=== PATIENT | male | born 1975 | race Caucasian/White ===

== ENCOUNTER 2019-04-16 20:36 | Emergency (ER) | payer MEDICAID, MEDICARE ==
[~2019-04-16] VITALS: Ht 193 cm; Wt 92.5 kg
[~2019-04-16 20:36] MED LIST: LORA-259 PO; QUET25TA PO; TRAZ-182 PO
--- NOTE | 2019-04-16 21:54 | NUR ---
PT STATES "THEY SENT ME HERE FROM [facility] TO GET EVALUATED", +SI, PLAN TO WALK IN FRONT OF A BUS, -HI, +AUDITORY HALLUCINATIONS. PT AOX4. NAD NOTED. RESP EVEN AND UNLABORED. PT COOPERATIVE. PT BELONGINGS PLACED IN LABELED BAG AND PLACED IN LOCKER. SECURITY CALLED TO WAND PATIENT FOR SAFETY.
--- NOTE | 2019-04-16 21:58 | NUR ---
SECURITY AT BEDSIDE TO WAND PATIENT
--- NOTE | 2019-04-16 22:10 | NUR ---
PHLEB AT BEDSIDE FOR BLOOD DRAW
[2019-04-16 22:20] LABS: BASOPHILS # (AUTO) 0.1 /CMM (0.0-0.2); BASOPHILS % (AUTO) 0.6 % (0.0-2.0); EOSINOPHILS % (AUTO) 1.8 % (0.0-6.0); HEMATOCRIT 47 % (39-51); HEMOGLOBIN 15.5 g/dL (13.5-17.5); LYMPHOCYTES # (AUTO) 2.1 /CMM (0.8-4.8); LYMPHOCYTES % (AUTO) 21.6 % (20.0-44.0); MEAN CORPUSCULAR HGB CONC 33 g/dl (31.0-36.0); MEAN CORPUSCULAR VOLUME 93 fL (80-96); MONOCYTES # (AUTO) 0.8 /CMM (0.1-1.30); MONOCYTES % (AUTO) 8.2 % (2.0-12.0); NEUTROPHILS # (AUTO) 6.6 /CMM (1.8-8.9); NEUTROPHILS % (AUTO) 67.8 % (43.0-81.0); PLATELET COUNT (AUTO) 299 /CMM (150-450); RED BLOOD CELL COUNT(AUTO) 5.02 MIL/uL (4.5-6.0); WHITE BLOOD COUNT (AUTO) 9.8 K/uL (4.3-11.0)
[2019-04-16 22:22] LABS: APPEARANCE,URINE Clear (CLEAR); BILIRUBIN,URINE MODERATE (NEGATIVE); BLOOD, URINE Small Ery/uL (NEGATIVE); COLOR,URINE Amber (YELLOW); KETONES,URINE 80 (NEGATIVE); LEUKOCYTE ESTERASE ,URINE Negative (NEGATIVE); NITRITE, URINE Negative (NEGATIVE); PROTEIN,URINE Trace mg/dl (NEGATIVE); UGLUCOSE Negative (NEGATIVE)
[2019-04-16 22:35] LABS: CALCIUM, SERUM 9.1 mg/dL (8.5-10.1); CARBON DIOXIDE 25 mmol/L (21-32); CHLORIDE 100 mmol/L (98-107); CREATININE 0.9 mg/dL (0.6-1.3); GLUCOSE 92 mg/dL (74-106); POTASSIUM 3.5 mmol/L (3.5-5.1); SODIUM SERUM 136 mmol/L (136-145); UREA NITROGEN, BLOOD 21 mg/dL (7-18)
[2019-04-16 22:51] LABS: ALANINE AMINOTRANSFERASE 32 U/L (12-78); ALBUMIN 4.1 g/dL (3.4-5.0); ALCOHOL, BLOOD < 3 mg/dL (0-0); ALKALINE PHOSPHATASE 76 U/L (46-116); ASPARTATE AMINOTRANSFERASE 36 U/L (15-37); BILIRUBIN,DIRECT 0.5 mg/dL (0.0-0.2); BILIRUBIN,TOTAL 1.7 mg/dL (0.2-1.0); TOTAL PROTEIN, SERUM 8.1 g/dL (6.4-8.2)
[2019-04-16 22:52] LABS: ACETAMINOPHEN 0 ug/ml (10-30); SALICYLATE 0.8 mg/dL (2.8-20.0)
[2019-04-16 23:00] LABS: BACTERIA,URINE Few /HPF (None Seen); MUCUS,URINE Moderate /LPF (None Seen); RBC,URINE 21-50 /HPF (0-2); SQUAMOUS EPITHELIAL CELL,UR Rare /HPF (None Seen)
--- NOTE | 2019-04-17 03:20 | NUR ---
Pt accepted to [facility] by Dr Scruggs. # for report [phone].
--- NOTE | 2019-04-17 03:41 | NUR ---
José called for transport. ETA 2480. trip# [id number]
[2019-04-17 03:58] VITALS: BP 119/72
--- NOTE | 2019-04-17 04:19 | NUR ---
report given to EMT from [facility]
--- NOTE | 2019-04-17 04:35 | NUR ---
pt was transferred to [facility] via [facility] by [facility] in stable condition. all belongings pickedup by the pt/forklift wheel loader
== END 2019-04-17 04:39 ==
LOC: ER 20:38
DX: R45.851 Suicidal ideations (principal); Z98.890 Other specified postprocedural states; Z88.8 Allergy status to other drugs, medicaments and biological substances; Z79.899 Other long term (current) drug therapy
CPT/HCPCS: 36415; 80048; 80076; 80305; 80307; 80329; 81001; 85025; 87086; 99285; G0480; 81000-TC

== ENCOUNTER 2019-06-23 23:04 | Emergency (ER) | payer MEDICAID ==
[~2019-06-23] VITALS: Ht 177.8 cm; Wt 79.4 kg
--- NOTE | 2019-06-23 23:39 | NUR ---
URINE COLLECTED AND SENT TO LAB
[2019-06-23 23:54] LABS: APPEARANCE,URINE Clear (CLEAR); BILIRUBIN,URINE MODERATE (NEGATIVE); BLOOD, URINE Negative Ery/uL (NEGATIVE); COLOR,URINE Amber (YELLOW); KETONES,URINE Negative (NEGATIVE); LEUKOCYTE ESTERASE ,URINE Negative (NEGATIVE); NITRITE, URINE Negative (NEGATIVE); PROTEIN,URINE Trace mg/dl (NEGATIVE); UGLUCOSE Negative (NEGATIVE)
[2019-06-24 00:03] LABS: BASOPHILS # (AUTO) 0.1 /CMM (0.0-0.2); BASOPHILS % (AUTO) 1.4 % (0.0-2.0); EOSINOPHILS % (AUTO) 1.9 % (0.0-6.0); HEMATOCRIT 42 % (39-51); LYMPHOCYTES # (AUTO) 2.3 /CMM (0.8-4.8); LYMPHOCYTES % (AUTO) 32.2 % (20.0-44.0); MEAN CORPUSCULAR HGB CONC 33 g/dl (31.0-36.0); MEAN CORPUSCULAR VOLUME 92 fL (80-96); MONOCYTES # (AUTO) 0.6 /CMM (0.1-1.30); MONOCYTES % (AUTO) 8.9 % (2.0-12.0); NEUTROPHILS % (AUTO) 55.6 % (43.0-81.0); PLATELET COUNT (AUTO) 327 /CMM (150-450); WHITE BLOOD COUNT (AUTO) 7.2 K/uL (4.3-11.0)
[2019-06-24 00:09] LABS: CALCIUM, SERUM 9.1 mg/dL (8.5-10.1); CARBON DIOXIDE 31 mmol/L (21-32); CHLORIDE 106 mmol/L (98-107); GLUCOSE 126 mg/dL (74-106); SODIUM SERUM 144 mmol/L (136-145); UREA NITROGEN, BLOOD 15 mg/dL (7-18)
[2019-06-24 00:14] LABS: ACETAMINOPHEN 0 ug/ml (10-30); ALANINE AMINOTRANSFERASE 21 U/L (12-78); ALBUMIN 3.5 g/dL (3.4-5.0); ALCOHOL, BLOOD < 3 mg/dL (0-0); ALKALINE PHOSPHATASE 65 U/L (46-116); ASPARTATE AMINOTRANSFERASE 22 U/L (15-37); BILIRUBIN,DIRECT 0.2 mg/dL (0.0-0.2); BILIRUBIN,TOTAL 0.7 mg/dL (0.2-1.0); SALICYLATE 0.5 mg/dL (2.8-20.0); TOTAL PROTEIN, SERUM 7.7 g/dL (6.4-8.2)
[2019-06-24 00:30] LABS: BACTERIA,URINE None seen /HPF (None Seen); CALCIUM OXALATE CRYSTALS,UR Few /HPF (None Seen); MUCUS,URINE Many /LPF (None Seen); SQUAMOUS EPITHELIAL CELL,UR Few /HPF (None Seen)
--- NOTE | 2019-06-24 03:16 | NUR ---
ACCEPTED TO [facility] UNIT 2.
--- NOTE | 2019-06-24 03:29 | NUR ---
AMBULANCE RESERVATION #[id number]
--- NOTE | 2019-06-24 04:24 | NUR ---
AMBULANCE ETA 1000
--- NOTE | 2019-06-24 04:31 | NUR ---
AMBULANCE DISPATCH WILL CALL BACK WITH A EARLIER ETA IF AVAILABLE.
--- NOTE | 2019-06-24 04:58 | NUR ---
Patient is resting comfortably in bed with eyes closed. Easily aroused. VSS. -ACUTE DISTRESS NOTED
--- NOTE | 2019-06-24 05:53 | NUR ---
REPORT GIVEN TO BRIDGET PARMAR AT [facility]
[2019-06-24 10:14] VITALS: BP 132/80
--- NOTE | 2019-06-24 10:15 | NUR ---
TRANSFERED TO [facility]. STABLE CONDITION.
== END 2019-06-24 10:16 ==
LOC: ER 23:06
DX: F15.10 Other stimulant abuse, uncomplicated (principal); R45.851 Suicidal ideations; F31.9 Bipolar disorder, unspecified; F25.9 Schizoaffective disorder, unspecified; Z98.890 Other specified postprocedural states; Z79.899 Other long term (current) drug therapy; Z88.8 Allergy status to other drugs, medicaments and biological substances
CPT/HCPCS: 36415; 80048; 80076; 80305; 80307; 80329; 81001; 85025; 87086; 99285; G0480; 81000-TC

== ENCOUNTER 2019-11-01 12:24 | Emergency (ER) | payer MEDICAID ==
[~2019-11-01] VITALS: Ht 182.9 cm; Wt 72.6 kg
--- NOTE | 2019-11-01 12:25 | NUR ---
PT BIB SELF C/O SI "want to jump in front of traffic." PT IS AAOX4, NOT IN RESPIRATORY DISTRESS, V/S STABLE, KEPT RESTED AND COMFORTABLE, WILL CONTINUE TO MONITOR.
--- NOTE | 2019-11-01 12:35 | NUR ---
PT SEEN AND EXAMINED BY .
--- NOTE | 2019-11-01 12:49 | NUR ---
URINE SPECIMEN COLLECTED AND SENT TO LAB.
--- NOTE | 2019-11-01 13:05 | NUR ---
ER PHLEB AT BEDSIDE FOR BLOOD DRAW.
[2019-11-01 13:12] LABS: APPEARANCE,URINE Slightly Cloudy (CLEAR); BILIRUBIN,URINE MODERATE (NEGATIVE); BLOOD, URINE Negative Ery/uL (NEGATIVE); COLOR,URINE Dark (YELLOW); KETONES,URINE Trace (NEGATIVE); LEUKOCYTE ESTERASE ,URINE Negative (NEGATIVE); NITRITE, URINE Negative (NEGATIVE); PH,URINE 5.5 (5.0-8.0); PROTEIN,URINE Trace mg/dl (NEGATIVE); UGLUCOSE Negative (NEGATIVE)
[2019-11-01 13:15] LABS: BASOPHILS % (AUTO) 0.5 % (0.0-2.0); EOSINOPHILS % (AUTO) 1.1 % (0.0-6.0); HEMATOCRIT 41 % (39-51); HEMOGLOBIN 13.9 g/dL (13.5-17.5); LYMPHOCYTES % (AUTO) 27.4 % (20.0-44.0); MEAN CORPUSCULAR HGB CONC 34 g/dl (31.0-36.0); MEAN CORPUSCULAR VOLUME 94 fL (80-96); MONOCYTES # (AUTO) 0.7 /CMM (0.1-1.30); MONOCYTES % (AUTO) 9.9 % (2.0-12.0); NEUTROPHILS # (AUTO) 4.4 /CMM (1.8-8.9); NEUTROPHILS % (AUTO) 61.1 % (43.0-81.0); PLATELET COUNT (AUTO) 242 /CMM (150-450); RED BLOOD CELL COUNT(AUTO) 4.36 MIL/uL (4.5-6.0); WHITE BLOOD COUNT (AUTO) 7.3 K/uL (4.3-11.0)
[2019-11-01 13:22] LABS: BACTERIA,URINE Few /HPF (None Seen); SQUAMOUS EPITHELIAL CELL,UR Few /HPF (None Seen); URINE AMORPHOUS URATE Moderate /HPF (None Seen)
[2019-11-01 13:22] LABS: CALCIUM, SERUM 8.2 mg/dL (8.5-10.1); CARBON DIOXIDE 27 mmol/L (21-32); CHLORIDE 102 mmol/L (98-107); CREATININE 0.9 mg/dL (0.6-1.3); GLUCOSE 99 mg/dL (74-106); POTASSIUM 3.3 mmol/L (3.5-5.1); SODIUM SERUM 138 mmol/L (136-145); UREA NITROGEN, BLOOD 22 mg/dL (7-18)
[2019-11-01 13:28] LABS: ALANINE AMINOTRANSFERASE 32 U/L (12-78); ALBUMIN 3.9 g/dL (3.4-5.0); ALCOHOL, BLOOD < 3 mg/dL (0-0); ALKALINE PHOSPHATASE 66 U/L (46-116); ASPARTATE AMINOTRANSFERASE 33 U/L (15-37); BILIRUBIN,DIRECT 0.4 mg/dL (0.0-0.2); BILIRUBIN,TOTAL 1.6 mg/dL (0.2-1.0); TOTAL PROTEIN, SERUM 7.5 g/dL (6.4-8.2)
[2019-11-01 13:31] LABS: ACETAMINOPHEN < 2 ug/ml (10-30); SALICYLATE < 0.2 mg/dL (2.8-20.0)
--- NOTE | 2019-11-01 14:00 | NUR ---
WAREHOUSE INSULATION WORKER was informed by Randal in ED pt requires voluntary hospitalization. Per MD notes, pt is a 44-year-old male, patient is suicidal and states he wants to run into traffic. No homicidal ideation. No other somatic complaints. No cough, COVID-19 contacts, sore throat, fever or chills. WAREHOUSE INSULATION WORKER conducted chart review. Pt has a history of Bipolar and Schizophrenia. WAREHOUSE INSULATION WORKER contacted Rolly at [facility] and initiated voluntary psychiatric admission. Clinicals faxed to [facility] intake dept.
--- NOTE | 2019-11-01 14:56 | NUR ---
ART APPRAISER followed up with Junie at [facility] intake. Per Junie, clinicals are being reviewed by lost charge card clerk at [place]. Junie to f/u within the next hour.
--- NOTE | 2019-11-01 16:11 | NUR ---
AUTOTRANSFUSIONIST called [facility] intake and spoke with CJ who informed AUTOTRANSFUSIONIST pt has been referred to [facility] and is awaiting a follow up from [facility]. SW informed CJ to follow up with ED when pt is confirmed to go to [facility] location.
--- NOTE | 2019-11-01 17:31 | NUR ---
Called [facility] for transport. No ETA as of yet
--- NOTE | 2019-11-01 17:31 | NUR ---
pt accepted to [facility] Accepting MD is Dr. Phelan, Pt will got to unit B4. Number for report is [phone]
--- NOTE | 2019-11-01 19:50 | NUR ---
PT PROVIDED WITH FOOD
--- NOTE | 2019-11-01 20:31 | NUR ---
[facility] ETA 2100
[2019-11-01 21:00] VITALS: BP 110/70
--- NOTE | 2019-11-01 21:09 | NUR ---
REPORT GIVEN TO JESSICA PARMAR FOR [facility]
--- NOTE | 2019-11-01 21:15 | NUR ---
[facility] AT BEDSIDE FOR TRANSPORT TO [facility].
== END 2019-11-01 21:32 ==
LOC: ER 12:24
DX: R45.851 Suicidal ideations (principal); F31.9 Bipolar disorder, unspecified; Z98.890 Other specified postprocedural states; Z88.8 Allergy status to other drugs, medicaments and biological substances; Z79.899 Other long term (current) drug therapy
CPT/HCPCS: 36415; 80048; 80076; 80305; 80307; 80329; 81001; 85025; 99285; G0480; 81000-TC

== ENCOUNTER 2020-03-11 15:16 | Emergency (ER) | payer MEDICAID ==
[~2020-03-11] VITALS: Ht 177.8 cm; Wt 72.6 kg
--- NOTE | 2020-03-11 15:30 | NUR ---
PT CAME TO THE ER FOR SI W/ A PLAN TO OVERDOSE ON MEDICATIONS. PT AAOX4, VSS, RESPIRATIONS EVEN AND UNLABORED ON RA W/ NAD NOTED. PT CONNECTED TO THE REVENUE MANAGER AND POX. PT CHANGED INTO GOWN, BELONGINGS PLACED TO LOCKER. SUICIDE PRECAUTIONS IMPLEMENTED. SITTER AT BEDSIDE FOR SAFETY
--- NOTE | 2020-03-11 15:33 | NUR ---
Contact [facility] at ext. [phone] for patient assessment.
[2020-03-11 15:43] LABS: BASOPHILS # (AUTO) 0.1 /CMM (0.0-0.2); BASOPHILS % (AUTO) 0.9 % (0.0-2.0); EOSINOPHILS % (AUTO) 1.3 % (0.0-6.0); HEMATOCRIT 41 % (39-51); HEMOGLOBIN 13.7 g/dL (13.5-17.5); LYMPHOCYTES # (AUTO) 2.1 /CMM (0.8-4.8); LYMPHOCYTES % (AUTO) 31.3 % (20.0-44.0); MEAN CORPUSCULAR HGB CONC 33 g/dl (31.0-36.0); MEAN CORPUSCULAR VOLUME 97 fL (80-96); MONOCYTES # (AUTO) 0.7 /CMM (0.1-1.30); MONOCYTES % (AUTO) 10.8 % (2.0-12.0); NEUTROPHILS # (AUTO) 3.8 /CMM (1.8-8.9); NEUTROPHILS % (AUTO) 55.7 % (43.0-81.0); PLATELET COUNT (AUTO) 298 /CMM (150-450); RED BLOOD CELL COUNT(AUTO) 4.26 MIL/uL (4.5-6.0); WHITE BLOOD COUNT (AUTO) 6.9 K/uL (4.3-11.0)
--- NOTE | 2020-03-11 15:43 | NUR ---
COVID SWAB COLLECTED AND SENT TO LAB
--- NOTE | 2020-03-11 16:00 | NUR ---
URINE COLLECTED AND SENT TO LAB
[2020-03-11 16:04] LABS: CALCIUM, SERUM 8.4 mg/dL (8.5-10.1); CARBON DIOXIDE 23 mmol/L (21-32); CHLORIDE 103 mmol/L (98-107); CREATININE 0.8 mg/dL (0.6-1.3); GLUCOSE 89 mg/dL (74-106); POTASSIUM 3.3 mmol/L (3.5-5.1); SODIUM SERUM 140 mmol/L (136-145); UREA NITROGEN, BLOOD 19 mg/dL (7-18)
[2020-03-11 16:17] LABS: ACETAMINOPHEN 0 ug/ml (10-30); ALANINE AMINOTRANSFERASE 28 U/L (12-78); ALCOHOL, BLOOD < 3 mg/dL (0-0); ALKALINE PHOSPHATASE 67 U/L (46-116); ASPARTATE AMINOTRANSFERASE 33 U/L (15-37); BILIRUBIN,DIRECT 0.4 mg/dL (0.0-0.2); BILIRUBIN,TOTAL 2.1 mg/dL (0.2-1.0); TOTAL PROTEIN, SERUM 7.5 g/dL (6.4-8.2)
[2020-03-11 16:22] LABS: APPEARANCE,URINE Clear (CLEAR); BILIRUBIN,URINE Negative (NEGATIVE); BLOOD, URINE Negative Ery/uL (NEGATIVE); COLOR,URINE Yellow (YELLOW); KETONES,URINE Negative (NEGATIVE); LEUKOCYTE ESTERASE ,URINE Negative (NEGATIVE); NITRITE, URINE Negative (NEGATIVE); PH,URINE 6.5 (5.0-8.0); PROTEIN,URINE Negative (NEGATIVE); UGLUCOSE Negative (NEGATIVE); UROBILINOGEN,URINE 0.2 EU/dL (0.2)
--- NOTE | 2020-03-11 16:29 | NUR ---
SS ASESSMENT: [facility] notified by ER nursing staff that the pt. requires voluntary psych placement for SI with plan to : run into moving traffic. Upon SS assessment the pt. appears disheveled, presents restless and is cooperative throughout interview. The pt. is alert and oriented x3. The pt. stated that he is experiencing homelessness since the age of 6 and resides in [place]. Per patient he is currently having thoughts of suicide with a plan to run into traffic or drink some gasoline. Pt. is agreeable for voluntary psych placement at [facility][[address] [place] [address] ]. Pt. stated that he has a history of Bipolar and Schizophrenia. Patient stated that he hears voices that tell him theyw ill kill me and pt. stated he also has visual hallucinations. Per pt. he has taken the following medications is the past: Klonopin, Trazodone, Seroquel, Wellbutrin, and is not currently taking any medication as he has no access to it. [facility] called ER admitting department and they are working on presumptive Medi-Timo for the pt. [facility] communicated to ER Staff, Romain to fax labs to [facility] for placement when ready and arrange transportation.
--- NOTE | 2020-03-11 17:03 | NUR ---
Danielle, Intake Mounter [employer] Tel #: [phone] called asking for insurance update. According to Danielle, the patient has a reserved bed at [facility]. Addendum: 03/11/20 at 1706 by BREANN Ok to be admitted at [facility] if patient has insurance.
--- NOTE | 2020-03-11 19:00 | NUR ---
[facility] CALL[facility], WANT FACESHEET AND CLINICALS FAXED
--- NOTE | 2020-03-11 20:06 | NUR ---
TRANSFER INFORMATION: [facility] ACCEPTING MD : DR. FIERRO NUMBER FOR REPORT: [phone] EXT 108 UNIT 1
[2020-03-11 20:19] VITALS: BP 114/75
--- NOTE | 2020-03-11 20:26 | NUR ---
REPORT GIVEN TO GHULAM ALMAZAN FROM [facility] FOR [facility]
[2020-03-11] MEDS ORDERED: POTASSIUM CHLORIDE 20 MEQ TAB.PRT.SR PO ONE ×2 (20:44→21:00)
--- NOTE | 2020-03-11 21:15 | NUR ---
REPORT GIVEN TO EMS. PT STABLE FOR TRANSFER
== END 2020-03-11 21:21 ==
LOC: ER 15:37
DX: R45.851 Suicidal ideations (principal); F25.0 Schizoaffective disorder, bipolar type; Z20.828 Contact with and (suspected) exposure to other viral communicable diseases; Z91.14 Patient's other noncompliance with medication regimen
CPT/HCPCS: 36415; 80048; 80076; 80299; 80307 ×2; 80320; 81001; 85025; 87426; 99285; C9803; 81000-TC; G0480

== ENCOUNTER 2020-03-18 21:49 | Emergency (ER) | payer MEDICAID ==
[~2020-03-18] VITALS: Ht 185.4 cm; Wt 77.1 kg
--- NOTE | 2020-03-18 21:58 | NUR ---
PT AAOX4. BIBSELF C/O SI WITH PLAN TO WALK INTO TRAFFIC. DENIES HI. ADMITS TO METH USE. PT PLACED IN GOWN, ON MONITOR, AND PULSE OX. VSS. BELONINGS PLACED IN LOCKER. AWAITING MD FOR EVAL AND ORDERS. SITTER AT BEDSIDE.
--- NOTE | 2020-03-18 22:19 | NUR ---
URINE COLLECTED AND SENT TO LAB
--- NOTE | 2020-03-18 22:28 | NUR ---
COVID SWABBED, SENT TO LAB
[2020-03-18 22:37] LABS: BASOPHILS % (AUTO) 0.3 % (0.0-2.0); EOSINOPHILS % (AUTO) 1.3 % (0.0-6.0); HEMATOCRIT 44 % (39-51); HEMOGLOBIN 14.6 g/dL (13.5-17.5); LYMPHOCYTES # (AUTO) 1.5 /CMM (0.8-4.8); LYMPHOCYTES % (AUTO) 13.5 % (20.0-44.0); MEAN CORPUSCULAR HGB CONC 33 g/dl (31.0-36.0); MEAN CORPUSCULAR VOLUME 96 fL (80-96); MONOCYTES # (AUTO) 1.1 /CMM (0.1-1.30); MONOCYTES % (AUTO) 9.8 % (2.0-12.0); NEUTROPHILS # (AUTO) 8.1 /CMM (1.8-8.9); NEUTROPHILS % (AUTO) 75.1 % (43.0-81.0); PLATELET COUNT (AUTO) 276 /CMM (150-450); RED BLOOD CELL COUNT(AUTO) 4.62 MIL/uL (4.5-6.0); WHITE BLOOD COUNT (AUTO) 10.8 K/uL (4.3-11.0)
[2020-03-18 22:38] LABS: APPEARANCE,URINE CLEAR (CLEAR); BILIRUBIN,URINE NEGATIVE (NEGATIVE); BLOOD, URINE NEGATIVE Ery/uL (NEGATIVE); COLOR,URINE YELLOW (YELLOW); KETONES,URINE NEGATIVE (NEGATIVE); LEUKOCYTE ESTERASE ,URINE NEGATIVE (NEGATIVE); NITRITE, URINE NEGATIVE (NEGATIVE); PH,URINE 5.5 (5.0-8.0); PROTEIN,URINE TRACE mg/dl (NEGATIVE); UGLUCOSE NEGATIVE (NEGATIVE)
[2020-03-18 23:00] LABS: BACTERIA,URINE None seen /HPF (None Seen); RBC,URINE 0-2 /HPF (0-2); SQUAMOUS EPITHELIAL CELL,UR Few /HPF (None Seen); URINE AMORPHOUS URATE Few /HPF (None Seen); WBC,URINE 0-2 /HPF (0-3)
--- NOTE | 2020-03-18 23:00 | NUR ---
Patient is resting comfortably in bed. Easily aroused. VSS.
[2020-03-18 23:01] LABS: CARBON DIOXIDE 26 mmol/L (21-32); CHLORIDE 101 mmol/L (98-107); CREATININE 0.9 mg/dL (0.6-1.3); GLUCOSE 92 mg/dL (74-106); POTASSIUM 3.6 mmol/L (3.5-5.1); SODIUM SERUM 138 mmol/L (136-145); UREA NITROGEN, BLOOD 24 mg/dL (7-18)
[2020-03-18 23:01] LABS: MUCUS,URINE Many /LPF (None Seen)
[2020-03-18 23:09] LABS: ALANINE AMINOTRANSFERASE 34 U/L (12-78); ALBUMIN 4.3 g/dL (3.4-5.0); ALCOHOL, BLOOD < 3 mg/dL (0-0); ALKALINE PHOSPHATASE 60 U/L (46-116); ASPARTATE AMINOTRANSFERASE 27 U/L (15-37); BILIRUBIN,DIRECT 0.4 mg/dL (0.0-0.2); BILIRUBIN,TOTAL 1.7 mg/dL (0.2-1.0); TOTAL PROTEIN, SERUM 8.1 g/dL (6.4-8.2)
[2020-03-18 23:11] LABS: ACETAMINOPHEN < 2 ug/ml (10-30)
--- NOTE | 2020-03-19 00:12 | NUR ---
PT ASLEEP. VSS.
[2020-03-19] MEDS ORDERED: IBUPROFEN 600 MG TABLET ONE (01:17)
[2020-03-19] MEDS ORDERED: IBUPROFEN 600 MG TABLET PO ONE (01:30)
--- NOTE | 2020-03-19 01:47 | NUR ---
Patient is resting comfortably in bed with eyes closed. Easily aroused. VSS
--- NOTE | 2020-03-19 02:54 | NUR ---
PER CJ; REFAX CLINICALS
[2020-03-19 08:23] VITALS: BP 125/71
--- NOTE | 2020-03-19 08:52 | NUR ---
This SW followed up with Rolly at [facility]. Rolly to reach out to this SW to provide an update.
--- NOTE | 2020-03-19 09:37 | NUR ---
REPORT GIVEN TO NURSING CECI VELA. PENDING TRANSPORT AMBULANCE.
--- NOTE | 2020-03-19 11:47 | NUR ---
CALLED TRANSPORT [facility] ETA IS [phone] EDUARDA
--- NOTE | 2020-03-19 13:10 | NUR ---
PT TRANSPORTED TO [facility] VIA S AMBULANCE IN STABLE CONDITION.
== END 2020-03-19 13:10 ==
LOC: ER 21:49
DX: R45.851 Suicidal ideations (principal); F15.10 Other stimulant abuse, uncomplicated; F25.0 Schizoaffective disorder, bipolar type; Z79.899 Other long term (current) drug therapy; Z20.828 Contact with and (suspected) exposure to other viral communicable diseases
CPT/HCPCS: 36415; 80048; 80076; 80299; 80307 ×2; 80320; 81001; 85025; 87426; 99285; C9803; 81000-TC; G0480

== ENCOUNTER 2020-07-25 19:50 | Emergency (ER) | payer SELFPAY ==
[~2020-07-25] VITALS: Ht 185.4 cm; Wt 77.1 kg
[2020-07-25 19:50] VITALS: BP 125/84
--- NOTE | 2020-07-25 21:36 | NUR ---
PT REFUSING BLOOD DRAW AND WANTS TO LEAVE AND COME BACK TOMORROW. PT STATES "I FEEL BETTER RIGHT NOW, I JUST WANT TO LEAVE AND COME BACK TOMORROW IF I FEEL BAD." PT DENIES SI/HI. PT REFUSING TO WAIT SPEAK TO ER PA BEFORE LEAVING.
== END 2020-07-25 21:40 | disposition home or self-care (01) ==
LOC: ER 19:52
DX: R45.851 Suicidal ideations (principal); F31.9 Bipolar disorder, unspecified; F20.9 Schizophrenia, unspecified; Z98.890 Other specified postprocedural states; Z88.8 Allergy status to other drugs, medicaments and biological substances; Z79.899 Other long term (current) drug therapy; Z04.6 Encounter for general psychiatric examination, requested by authority

== ENCOUNTER 2021-03-18 06:07 | Emergency (ER) | payer MEDICAID, OTHER ==
[~2021-03-18] VITALS: Ht 182.9 cm; Wt 77.1 kg
--- NOTE | 2021-03-18 07:01 | NUR ---
PT AAOX4. BIBSELF C/O SI WITH PLAN TO WALK ACROSS TRAFFIC. -HI. REQUESTING TO BE SENT TO [facility]. PLACED IN BED 13 IN GOWN, ON MONITOR, AND PULSE OX. PT'S BELONGINGS PLACED IN LOCKER. SITTER AT BEDSIDE. AWAITING ER MD FOR EVAL AND ORDERS.
[2021-03-18 07:02] LABS: BASOPHILS % (AUTO) 0.7 % (0.0-2.0); EOSINOPHILS % (AUTO) 4.6 % (0.0-6.0); HEMATOCRIT 41 % (39-51); HEMOGLOBIN 14.2 g/dL (13.5-17.5); LYMPHOCYTES # (AUTO) 1.9 K/uL (0.8-4.8); LYMPHOCYTES % (AUTO) 35.8 % (20.0-44.0); MEAN CORPUSCULAR HGB CONC 34 g/dl (31.0-36.0); MEAN CORPUSCULAR VOLUME 94 fL (80-96); MONOCYTES # (AUTO) 0.5 K/uL (0.1-1.30); MONOCYTES % (AUTO) 8.8 % (2.0-12.0); NEUTROPHILS # (AUTO) 2.7 K/uL (1.8-8.9); NEUTROPHILS % (AUTO) 50.1 % (43.0-81.0); PLATELET COUNT (AUTO) 257 K/uL (150-450); RED BLOOD CELL COUNT(AUTO) 4.41 MIL/uL (4.5-6.0); WHITE BLOOD COUNT (AUTO) 5.4 K/uL (4.3-11.0)
[2021-03-18 07:16] LABS: ALANINE AMINOTRANSFERASE 28 U/L (12-78); ALBUMIN 3.7 g/dL (3.4-5.0); ALKALINE PHOSPHATASE 57 U/L (46-116); ASPARTATE AMINOTRANSFERASE 27 U/L (15-37); BILIRUBIN,DIRECT 0.2 mg/dL (0.0-0.2); BILIRUBIN,TOTAL 0.8 mg/dL (0.2-1.0); CALCIUM, SERUM 8.2 mg/dL (8.5-10.1); CARBON DIOXIDE 28 mmol/L (21-32); CHLORIDE 102 mmol/L (98-107); CREATININE 0.7 mg/dL (0.6-1.3); GLUCOSE 89 mg/dL (74-106); POTASSIUM 3.3 mmol/L (3.5-5.1); SODIUM SERUM 138 mmol/L (136-145); UREA NITROGEN, BLOOD 7 mg/dL (7-18)
[2021-03-18 07:19] LABS: ACETAMINOPHEN 0 ug/ml (10-30); ALCOHOL, BLOOD < 3 mg/dL (0-0)
[2021-03-18 07:29] LABS: BILIRUBIN,URINE SMALL (NEGATIVE); COLOR,URINE DARK YELLOW (YELLOW); LEUKOCYTE ESTERASE ,URINE NEGATIVE (NEGATIVE); NITRITE, URINE NEGATIVE (NEGATIVE); PROTEIN,URINE NEGATIVE (NEGATIVE); UGLUCOSE NEGATIVE (NEGATIVE); UROBILINOGEN,URINE 0.2 EU/dL (0.2)
--- NOTE | 2021-03-18 08:08 | NUR ---
THE PATIENT IS RECEIVED IN ER BED #13. RESPONSIVE TO VERBAL STIMULI. RESPIRATION REGULAR AND UNLABORED. SITTER AT THE BEDSIDE. WILL CONTINUE TO MONITOR THE PATIENT. SITTER AT THE BEDSIDE
--- NOTE | 2021-03-18 08:19 | NUR ---
FAXED FACE SHEET AND CLINICALS TO [facility].
--- NOTE | 2021-03-18 08:33 | NUR ---
CALLED [facility] AND VERIFIED THAT THEY HAVE RECIEVED THE CLINICALS.
[2021-03-18 09:24] LABS: BACTERIA,URINE Rare /HPF (None Seen); SQUAMOUS EPITHELIAL CELL,UR Few /HPF (None Seen); WBC,URINE NONE SEEN /HPF (0-3)
--- NOTE | 2021-03-18 09:36 | NUR ---
THE PATIENT IS HAVING BREAKFAST. TOLERATES DIET WELL
--- NOTE | 2021-03-18 09:39 | NUR ---
[facility] CALLED AND WAS NOTIFIED THAT PT HAS BEEN ACCEPTED TO THE FACILITY AFTER 1330.
--- NOTE | 2021-03-18 10:07 | NUR ---
CALLED [facility] FOR BLS TRANSPORT FOR PT. ETA [phone]
--- NOTE | 2021-03-18 12:13 | NUR ---
REPORT GIVEN TO NURSE ZUNIGA FROM [facility]
--- NOTE | 2021-03-18 12:20 | NUR ---
ACCEPTING DOCTOR- DR. MELVIN
--- NOTE | 2021-03-18 16:00 | NUR ---
THE PATIENT IS TRANSFERED TO [facility] IN STABLE CONDITION VIA ARRANGED TRANSPO.
[2021-03-18 17:10] VITALS: BP 126/84
== END 2021-03-18 17:10 ==
LOC: ER 06:09
DX: R45.851 Suicidal ideations (principal); F15.10 Other stimulant abuse, uncomplicated; F31.9 Bipolar disorder, unspecified; F25.9 Schizoaffective disorder, unspecified; Z20.822 Contact with and (suspected) exposure to COVID-19; Z82.49 Family history of ischemic heart disease and other diseases of the circulatory system
CPT/HCPCS: 36415; 80048; 80076; 80143; 80307; 80320; 81001; 85025; 87426; 99285; C9803; G0480

== ENCOUNTER 2021-09-07 19:38 | Emergency (ER) | payer SELFPAY ==
[~2021-09-07] VITALS: Ht 185.4 cm; Wt 95.3 kg
--- NOTE | 2021-09-07 20:17 | NUR ---
CALLED TO TRIAGE NO ANSWER, NOT IN WAITING ROOM.
--- NOTE | 2021-09-07 20:40 | NUR ---
PRESENTED TO THE ER FOR C/O SI, REQUESTING MEDICAL CLEARANCE FOR VOLUNTARY PSYCH ADMISSION. PATIENT AMBULATORY WITH STEADY GAITS TO THE BATHROOM. URINE SAMPLE OBTAINED AND PATIENT WAS PLACED IN SI PRECAUTION. COVID SAMPLE SENT TO THE LAB. VSS. WILL CONT TO MONITOR.
[2021-09-07 21:27] LABS: BILIRUBIN,URINE SMALL (NEGATIVE); COLOR,URINE YELLOW (YELLOW); LEUKOCYTE ESTERASE ,URINE NEGATIVE (NEGATIVE); NITRITE, URINE NEGATIVE (NEGATIVE); PH,URINE 6.5 (5.0-8.0); PROTEIN,URINE NEGATIVE (NEGATIVE); UGLUCOSE NEGATIVE (NEGATIVE)
[2021-09-07 21:29] LABS: BASOPHILS % (AUTO) 0.2 % (0.0-2.0); EOSINOPHILS % (AUTO) 0.5 % (0.0-6.0); HEMATOCRIT 42 % (39-51); HEMOGLOBIN 14.2 g/dL (13.5-17.5); LYMPHOCYTES # (AUTO) 2.3 K/uL (0.8-4.8); LYMPHOCYTES % (AUTO) 28.5 % (20.0-44.0); MEAN CORPUSCULAR HGB CONC 34 g/dl (31.0-36.0); MEAN CORPUSCULAR VOLUME 91 fL (80-96); MONOCYTES # (AUTO) 0.6 K/uL (0.1-1.30); MONOCYTES % (AUTO) 8.1 % (2.0-12.0); NEUTROPHILS % (AUTO) 62.7 % (43.0-81.0); PLATELET COUNT (AUTO) 303 K/uL (150-450); RED BLOOD CELL COUNT(AUTO) 4.65 MIL/uL (4.5-6.0); WHITE BLOOD COUNT (AUTO) 7.9 K/uL (4.3-11.0)
[2021-09-07 21:42] LABS: CALCIUM, SERUM 9.1 mg/dL (8.5-10.1); CARBON DIOXIDE 21 mmol/L (21-32); CHLORIDE 104 mmol/L (98-107); GLUCOSE 145 mg/dL (74-106); SODIUM SERUM 139 mmol/L (136-145); UREA NITROGEN, BLOOD 24 mg/dL (7-18)
[2021-09-07 21:49] LABS: ALANINE AMINOTRANSFERASE 28 U/L (12-78); ALBUMIN 4.4 g/dL (3.4-5.0); ALCOHOL, BLOOD < 3 mg/dL (0-0); ALKALINE PHOSPHATASE 75 U/L (46-116); ASPARTATE AMINOTRANSFERASE 22 U/L (15-37); BILIRUBIN,DIRECT 0.3 mg/dL (0.0-0.2); TOTAL PROTEIN, SERUM 8.3 g/dL (6.4-8.2)
[2021-09-07 21:51] LABS: ACETAMINOPHEN 0 ug/ml (10-30)
[2021-09-07 21:58] LABS: BACTERIA,URINE FEW /HPF (None Seen); CALCIUM CARBONATE CRYSTALS,UR None Seen /HPF (None Seen); CALCIUM OXALATE CRYSTALS,UR None Seen /HPF (None Seen); CALCIUM PHOSPHATE CRYSTALS,UR None Seen /HPF (None Seen); COARSE GRANULAR CASTS,URINE None Seen /LPF (None Seen); CYSTINE CRYSTALS,URINE None Seen /HPF (None Seen); FATTY CASTS,URINE None Seen /LPF (None Seen); FINE GRANULAR CASTS,URINE None Seen /LPF (None Seen); HYALINE CASTS, URINE None Seen /LPF (None Seen); MUCUS,URINE None Seen /LPF (None Seen); OTHER CRYSTALS,URINE None Seen /HPF (None Seen); RBC,URINE 0-2 /HPF (0-2); RED BLOOD CELL CASTS,URINE None Seen /LPF (None Seen); SPERM,URINE None Seen /HPF (None Seen); SQUAMOUS EPITHELIAL CELL,UR FEW /HPF (None Seen); TRICHOMONAS,URINE None Seen /HPF (None Seen); TRIPLE PHOSPHATE CRYSTAL,UR None Seen /HPF (None Seen); TYROSINE CRYSTAL,URINE None seen /HPF (None Seen); URIC ACID CRYSTALS,URINE None Seen /HPF (None Seen); URINE AMORPHOUS PHOSPHATES None Seen /HPF (None Seen); URINE AMORPHOUS URATE None Seen /HPF (None Seen); WAXY CASTS,URINE None Seen /LPF (None Seen); WBC,URINE 0-2 /HPF (0-3); YEAST,URINE None Seen /HPF (None Seen)
[2021-09-07] MEDS ORDERED: IV NS 0.9% 1,000 ML BAG IV ONE (22:00)
[2021-09-07] MEDS ORDERED: POTASSIUM CHLORIDE 20 MEQ TAB.PRT.SR PO ONE ×2 (22:00→22:07)
[2021-09-07] MEDS ORDERED: POTASSIUM CHLORIDE 10 MEQ TABLET.SA ONE (22:07)
--- NOTE | 2021-09-07 22:13 | NUR ---
PATIENT REFUSED IV, GIVEN 1L OF WATER MD NOTIFIED.
--- NOTE | 2021-09-08 00:48 | NUR ---
PATIENT STATES HE IS NO LONGER SUICIDAL. EDUCATED PATIENT, THAT HE CAN COME BACK ANYTIME IN CASE HE IS FEELING SUICIDAL. ADVISED PATIENT THAT THERE IS HELP OUT THERE FOR WHENEVER HE IS FEELING SUICIDAL. PROVIDED BELONGINGS BACK TO PATIENT GIVEN A SANDWICH AND WATER BOTTLE WELL A WARM BLANKET. NOTIFIED
[2021-09-08 00:50] VITALS: BP 128/78
== END 2021-09-08 00:49 | disposition home or self-care (01) ==
LOC: ER 19:38
DX: R45.851 Suicidal ideations (principal); Z82.49 Family history of ischemic heart disease and other diseases of the circulatory system; E87.6 Hypokalemia; F25.9 Schizoaffective disorder, unspecified; F31.9 Bipolar disorder, unspecified; Z79.899 Other long term (current) drug therapy; Z20.822 Contact with and (suspected) exposure to COVID-19; Z91.51 Personal history of suicidal behavior; Z53.29 Procedure and treatment not carried out because of patient's decision for other reasons
CPT/HCPCS: 36415; 80048; 80076; 80143; 80307; 80320; 81001; 85025; 87426; 99285; C9803; G0480

== ENCOUNTER 2021-09-13 21:37 | Emergency (ER) | payer MEDICAID ==
[~2021-09-13] VITALS: Ht 185.4 cm; Wt 90.7 kg
--- NOTE | 2021-09-14 00:23 | NUR ---
COVID SWAB COLLECTED & SENT TO LAB. PT REFUSED BLOOD DRAW AT THIS TIME
--- NOTE | 2021-09-14 04:57 | NUR ---
PATIENT ELOPED FROM HOSPITAL. AWARE.
[2021-09-14 04:58] VITALS: BP 140/70
== END 2021-09-14 04:59 | disposition left against medical advice (07) ==
LOC: ER 21:41
DX: R45.851 Suicidal ideations (principal); F31.9 Bipolar disorder, unspecified; F25.9 Schizoaffective disorder, unspecified; F17.200 Nicotine dependence, unspecified, uncomplicated; Z98.890 Other specified postprocedural states; Z88.8 Allergy status to other drugs, medicaments and biological substances; Z60.2 Problems related to living alone; Z79.899 Other long term (current) drug therapy

== ENCOUNTER 2021-09-16 06:49 | Emergency (ER) | payer SELFPAY ==
--- NOTE | 2021-09-16 07:20 | NUR ---
Called NO Response-NOT in WR
--- NOTE | 2021-09-16 07:25 | NUR ---
Called NO Response-NOT in WR
--- NOTE | 2021-09-16 07:30 | NUR ---
Called NO Response-NOT in WR
== END 2021-09-16 07:31 | disposition home or self-care (01) ==
LOC: ER 06:53
DX: Z53.21 Procedure and treatment not carried out due to patient leaving prior to being seen by health care provider (principal)

== ENCOUNTER 2021-09-17 19:39 | Emergency (ER) | payer SELFPAY ==
[~2021-09-17] VITALS: Ht 185.4 cm; Wt 95.3 kg
[2021-09-17 20:13] VITALS: BP 132/70
--- NOTE | 2021-09-17 20:15 | NUR ---
TO ER BED 18. BIBS C/O SI W/ PLAN "JUMP OFF FREEWAY" PT WOULD LIKE VOLUNTARY ADMISSION TO [facility]. BELONGINGS TAKEN AN SECURED. PT CHANGED INTO GOWN. SITTER IN SIGHT. MAGGIE OCONNELL
--- NOTE | 2021-09-17 20:20 | NUR ---
URINE SAMPLE COLLECTED AND SENT TO LAB
[2021-09-17] MEDS ORDERED: ACETAMINOPHEN ES 500 MG TABLET ONE (20:27)
[2021-09-17] MEDS ORDERED: IBUPROFEN 600 MG TABLET ONE (20:27)
[2021-09-17] MEDS ORDERED: IBUPROFEN 600 MG TABLET PO ONE (20:30)
[2021-09-17] MEDS ORDERED: ACETAMINOPHEN 325 MG TABLET PO ONE (20:30)
--- NOTE | 2021-09-17 20:50 | NUR ---
PT NOW DENIES SUICIDAL THOUGHTS, MD MADE AWARE. V/S STABLE. WILL CONTINUE TO MONITOR.
--- NOTE | 2021-09-17 21:05 | NUR ---
Patient discharged to home in stable condition. Written and verbal after care instructions given. Patient verbalizes understanding of instruction.
== END 2021-09-17 21:05 | disposition home or self-care (01) ==
LOC: ER 19:50
DX: G89.29 Other chronic pain (principal); M79.671 Pain in right foot; M79.672 Pain in left foot; B35.1 Tinea unguium; F29 Unspecified psychosis not due to a substance or known physiological condition; F17.200 Nicotine dependence, unspecified, uncomplicated; F31.9 Bipolar disorder, unspecified; F25.9 Schizoaffective disorder, unspecified; Z59.00 Homelessness unspecified; Z98.890 Other specified postprocedural states; Z88.8 Allergy status to other drugs, medicaments and biological substances; Z60.2 Problems related to living alone; Z79.899 Other long term (current) drug therapy

== ENCOUNTER 2021-09-18 10:08 | Emergency (ER) | payer MEDICAID ==
--- NOTE | 2021-09-18 10:16 | NUR ---
called for triage and decline triage at the moment.
--- NOTE | 2021-09-18 10:30 | NUR ---
called for triage not in the waiting room
--- NOTE | 2021-09-18 11:00 | NUR ---
called for triage not in the waiting room
== END 2021-09-18 12:09 | disposition left against medical advice (07) ==
LOC: ER 10:10
DX: Z53.21 Procedure and treatment not carried out due to patient leaving prior to being seen by health care provider (principal)

== ENCOUNTER 2021-09-18 16:57 | Emergency (ER) | payer MEDICAID ==
[~2021-09-18] VITALS: Ht 185.4 cm; Wt 95.3 kg
--- NOTE | 2021-09-18 17:07 | NUR ---
To ER bed 14, [facility] +ABBY "i want to jump off the bridge", -HI, aaox3, breathing even and non labored, awaiting md ruby
--- NOTE | 2021-09-18 17:15 | NUR ---
SECURITY SHIFT SUPERVISOR AT BEDSIDE FOR BLOOD DRAW
--- NOTE | 2021-09-18 17:18 | NUR ---
URINE COLLECTED AND SENT TO THE LAB
--- NOTE | 2021-09-18 17:22 | NUR ---
COVID SWAB DONE AND SENT TO LAB
[2021-09-18 17:32] LABS: BASOPHILS % (AUTO) 0.6 % (0.0-2.0); EOSINOPHILS % (AUTO) 3.4 % (0.0-6.0); HEMATOCRIT 37 % (39-51); HEMOGLOBIN 12.5 g/dL (13.5-17.5); LYMPHOCYTES # (AUTO) 2.3 K/uL (0.8-4.8); MEAN CORPUSCULAR HGB CONC 34 g/dl (31.0-36.0); MEAN CORPUSCULAR VOLUME 92 fL (80-96); MONOCYTES # (AUTO) 0.5 K/uL (0.1-1.30); MONOCYTES % (AUTO) 7.7 % (2.0-12.0); NEUTROPHILS # (AUTO) 3.3 K/uL (1.8-8.9); NEUTROPHILS % (AUTO) 51.3 % (43.0-81.0); PLATELET COUNT (AUTO) 247 K/uL (150-450); RED BLOOD CELL COUNT(AUTO) 4.04 MIL/uL (4.5-6.0); WHITE BLOOD COUNT (AUTO) 6.3 K/uL (4.3-11.0)
[2021-09-18 17:42] LABS: BILIRUBIN,URINE NEGATIVE (NEGATIVE); COLOR,URINE YELLOW (YELLOW); LEUKOCYTE ESTERASE ,URINE NEGATIVE (NEGATIVE); NITRITE, URINE NEGATIVE (NEGATIVE); PROTEIN,URINE NEGATIVE (NEGATIVE); UGLUCOSE NEGATIVE (NEGATIVE)
[2021-09-18 17:52] LABS: BACTERIA,URINE N0 /HPF (None Seen); MUCUS,URINE Few /LPF (None Seen); RBC,URINE 0-2 /HPF (0-2); WBC,URINE 0-2 /HPF (0-3)
[2021-09-18 17:52] LABS: CALCIUM, SERUM 7.9 mg/dL (8.5-10.1); CARBON DIOXIDE 28 mmol/L (21-32); CHLORIDE 102 mmol/L (98-107); CREATININE 0.8 mg/dL (0.6-1.3); GLUCOSE 104 mg/dL (74-106); POTASSIUM 3.5 mmol/L (3.5-5.1); SODIUM SERUM 133 mmol/L (136-145); UREA NITROGEN, BLOOD 9 mg/dL (7-18)
[2021-09-18 17:53] LABS: SQUAMOUS EPITHELIAL CELL,UR 0-2 /HPF (None Seen)
[2021-09-18 17:59] LABS: ALANINE AMINOTRANSFERASE 27 U/L (12-78); ALBUMIN 3.4 g/dL (3.4-5.0); ALKALINE PHOSPHATASE 56 U/L (46-116); ASPARTATE AMINOTRANSFERASE 22 U/L (15-37); BILIRUBIN,DIRECT 0.2 mg/dL (0.0-0.2); BILIRUBIN,TOTAL 0.6 mg/dL (0.2-1.0); TOTAL PROTEIN, SERUM 6.3 g/dL (6.4-8.2)
[2021-09-18 18:24] LABS: ACETAMINOPHEN 0 ug/ml (10-30); ALCOHOL, BLOOD < 3 mg/dL (0-0)
[2021-09-18] MEDS ORDERED: LORAZEPAM 1 MG TABLET PO ONE (18:30)
[2021-09-18] MEDS ORDERED: LORAZEPAM 1 MG TABLET ONE (18:38)
--- NOTE | 2021-09-18 18:53 | NUR ---
PER ERICH OF LAB COVID RESULT WILL BE OUT IN 6MINS
[2021-09-18] MEDS ORDERED: OLANZAPINE 5 MG TABLET PO ONE (19:00)
[2021-09-18] MEDS ORDERED: OLANZAPINE 5 MG TABLET ONE (19:04)
--- NOTE | 2021-09-18 19:10 | NUR ---
FAXED CLINICALS TO [facility].
--- NOTE | 2021-09-19 01:53 | NUR ---
PATIENT ACCEPT AT [facility] UNDER DR HARRY REPORT [phone]- CHARGE NURSE [facility] ROOM GIVEN DURING REPORT
--- NOTE | 2021-09-19 02:08 | NUR ---
PT WILL BE TRANSPORTED TO [facility]IA [facility] AT 0730.
--- NOTE | 2021-09-19 04:17 | NUR ---
REPORT GIVEN TO NURSE MARSHALL ROOM 3084-C
--- NOTE | 2021-09-19 04:21 | NUR ---
ROOM 308-C
--- NOTE | 2021-09-19 08:07 | NUR ---
[facility] CALLED NEW ETA 60 MINS PER SAL.
[2021-09-19 09:25] VITALS: BP 132/87
== END 2021-09-19 09:42 ==
LOC: ER 19:02
DX: R45.851 Suicidal ideations (principal); F25.9 Schizoaffective disorder, unspecified; F31.9 Bipolar disorder, unspecified; Z79.899 Other long term (current) drug therapy; Z59.00 Homelessness unspecified; Z20.822 Contact with and (suspected) exposure to COVID-19
CPT/HCPCS: 36415; 80048; 80076; 80143; 80307; 80320; 81001; 85025; 87426; 99285; C9803; G0480

== ENCOUNTER 2021-09-26 12:39 | Emergency (ER) | payer MEDICAID ==
[~2021-09-26] VITALS: Ht 185.4 cm; Wt 90.7 kg
--- NOTE | 2021-09-26 12:45 | NUR ---
DR MURRAY AT BEDSIDE
--- NOTE | 2021-09-26 12:50 | NUR ---
URINE SAMPLE COLLECTED AND SENT TO LAB
--- NOTE | 2021-09-26 12:58 | NUR ---
CLOTH DESIZING RANGE TENDER AT BEDSIDE FOR BLOOD DRAW
--- NOTE | 2021-09-26 12:58 | NUR ---
COVID SWAB DONE AND SENT
--- NOTE | 2021-09-26 13:09 | NUR ---
SECURITY AT BEDSIDE FOR WANDING.
[2021-09-26 13:15] LABS: BASOPHILS % (AUTO) 0.4 % (0.0-2.0); EOSINOPHILS % (AUTO) 0.4 % (0.0-6.0); HEMATOCRIT 43 % (39-51); HEMOGLOBIN 14.7 g/dL (13.5-17.5); LYMPHOCYTES # (AUTO) 1.9 K/uL (0.8-4.8); LYMPHOCYTES % (AUTO) 21.6 % (20.0-44.0); MEAN CORPUSCULAR HGB CONC 34 g/dl (31.0-36.0); MEAN CORPUSCULAR VOLUME 91 fL (80-96); MONOCYTES # (AUTO) 0.8 K/uL (0.1-1.30); MONOCYTES % (AUTO) 9.4 % (2.0-12.0); NEUTROPHILS % (AUTO) 68.2 % (43.0-81.0); PLATELET COUNT (AUTO) 293 K/uL (150-450); RED BLOOD CELL COUNT(AUTO) 4.73 MIL/uL (4.5-6.0); WHITE BLOOD COUNT (AUTO) 8.7 K/uL (4.3-11.0)
[2021-09-26 13:20] LABS: CALCIUM, SERUM 9.1 mg/dL (8.5-10.1); CARBON DIOXIDE 25 mmol/L (21-32); CHLORIDE 101 mmol/L (98-107); GLUCOSE 95 mg/dL (74-106); POTASSIUM 3.4 mmol/L (3.5-5.1); SODIUM SERUM 138 mmol/L (136-145); UREA NITROGEN, BLOOD 24 mg/dL (7-18)
[2021-09-26 13:23] LABS: BILIRUBIN,URINE SMALL (NEGATIVE); COLOR,URINE ORANGE (YELLOW); LEUKOCYTE ESTERASE ,URINE NEGATIVE (NEGATIVE); NITRITE, URINE NEGATIVE (NEGATIVE); PH,URINE 5.5 (5.0-8.0); PROTEIN,URINE NEGATIVE (NEGATIVE); UGLUCOSE NEGATIVE (NEGATIVE)
[2021-09-26 13:27] LABS: ALANINE AMINOTRANSFERASE 58 U/L (12-78); ALBUMIN 4.5 g/dL (3.4-5.0); ALCOHOL, BLOOD < 3 mg/dL (0-0); ALKALINE PHOSPHATASE 58 U/L (46-116); ASPARTATE AMINOTRANSFERASE 44 U/L (15-37); BILIRUBIN,DIRECT 0.3 mg/dL (0.0-0.2); BILIRUBIN,TOTAL 1.4 mg/dL (0.2-1.0); TOTAL PROTEIN, SERUM 8.3 g/dL (6.4-8.2)
[2021-09-26 13:31] LABS: ACETAMINOPHEN < 2 ug/ml (10-30)
[2021-09-26 13:39] LABS: BACTERIA,URINE Few /HPF (None Seen); RBC,URINE 0-2 /HPF (0-2); SQUAMOUS EPITHELIAL CELL,UR Many /HPF (None Seen); WBC,URINE 0-2 /HPF (0-3)
[2021-09-26] MEDS ORDERED: QUETIAPINE FUMARATE 100 MG TABLET PO STA (15:36)
[2021-09-26] MEDS ORDERED: QUETIAPINE FUMARATE 100 MG TABLET ONE (15:40)
--- NOTE | 2021-09-26 17:41 | NUR ---
DINNER TRAY PROVIDED.
--- NOTE | 2021-09-26 18:41 | NUR ---
PT STATED HE WANTS TO BE DISCHARGED AND HE FEELS BETTER NOW. PT DENIES SI/HI
--- NOTE | 2021-09-26 18:43 | NUR ---
Patient discharged to home in stable condition. Written and verbal after care instructions given. Patient verbalizes understanding of instruction.
[2021-09-26 18:44] VITALS: BP 128/84
== END 2021-09-26 18:52 | disposition home or self-care (01) ==
LOC: ER 12:53
DX: F23 Brief psychotic disorder (principal); F15.10 Other stimulant abuse, uncomplicated; Z59.00 Homelessness unspecified; F25.9 Schizoaffective disorder, unspecified; J45.909 Unspecified asthma, uncomplicated; F31.9 Bipolar disorder, unspecified; Z53.29 Procedure and treatment not carried out because of patient's decision for other reasons
CPT/HCPCS: 36415; 80048; 80076; 80143; 80307; 80320; 81001; 85025; 87426; 99285; C9803; G0480

== ENCOUNTER 2021-10-05 15:31 | Emergency (ER) | payer MEDICAID ==
[~2021-10-05] VITALS: Ht 185.4 cm; Wt 95.3 kg
--- NOTE | 2021-10-05 15:54 | NUR ---
BIBS FOR SI WITH PLAN TO JAMP INTO TRAFFIC. WANTS TO GO TO [facility] VOL ADMIN TO [facility]. DENIES HI. DENIES HAVING ANY HALLUCINATION. WILL CONTINUE TO MONITOR THE PATIENT.
[2021-10-05 16:10] LABS: BILIRUBIN,URINE NEGATIVE (NEGATIVE); COLOR,URINE YELLOW (YELLOW); LEUKOCYTE ESTERASE ,URINE NEGATIVE (NEGATIVE); NITRITE, URINE NEGATIVE (NEGATIVE); PROTEIN,URINE NEGATIVE (NEGATIVE); UGLUCOSE NEGATIVE (NEGATIVE)
[2021-10-05 16:10] LABS: BASOPHILS % (AUTO) 0.9 % (0.0-2.0); EOSINOPHILS % (AUTO) 6.2 % (0.0-6.0); HEMATOCRIT 39 % (39-51); HEMOGLOBIN 13.1 g/dL (13.5-17.5); LYMPHOCYTES # (AUTO) 1.7 K/uL (0.8-4.8); LYMPHOCYTES % (AUTO) 33.5 % (20.0-44.0); MEAN CORPUSCULAR HGB CONC 34 g/dl (31.0-36.0); MEAN CORPUSCULAR VOLUME 92 fL (80-96); MONOCYTES # (AUTO) 0.5 K/uL (0.1-1.30); MONOCYTES % (AUTO) 9.3 % (2.0-12.0); NEUTROPHILS # (AUTO) 2.6 K/uL (1.8-8.9); NEUTROPHILS % (AUTO) 50.1 % (43.0-81.0); PLATELET COUNT (AUTO) 266 K/uL (150-450); WHITE BLOOD COUNT (AUTO) 5.2 K/uL (4.3-11.0)
--- NOTE | 2021-10-05 16:11 | NUR ---
COVID TEST COLLECTED AND SENT
[2021-10-05 16:21] LABS: BACTERIA,URINE FEW /HPF (None Seen); CALCIUM CARBONATE CRYSTALS,UR None Seen /HPF (None Seen); CALCIUM OXALATE CRYSTALS,UR None Seen /HPF (None Seen); CALCIUM PHOSPHATE CRYSTALS,UR None Seen /HPF (None Seen); CYSTINE CRYSTALS,URINE None Seen /HPF (None Seen); SQUAMOUS EPITHELIAL CELL,UR RARE /HPF (None Seen); TRICHOMONAS,URINE None Seen /HPF (None Seen); WBC,URINE 0-2 /HPF (0-3); YEAST,URINE None Seen /HPF (None Seen)
[2021-10-05 16:22] LABS: COARSE GRANULAR CASTS,URINE None Seen /LPF (None Seen); FATTY CASTS,URINE None Seen /LPF (None Seen); FINE GRANULAR CASTS,URINE None Seen /LPF (None Seen); HYALINE CASTS, URINE None Seen /LPF (None Seen); MUCUS,URINE None Seen /LPF (None Seen); OTHER CRYSTALS,URINE None Seen /HPF (None Seen); RED BLOOD CELL CASTS,URINE None Seen /LPF (None Seen); SPERM,URINE None Seen /HPF (None Seen); TRIPLE PHOSPHATE CRYSTAL,UR None Seen /HPF (None Seen); TYROSINE CRYSTAL,URINE None seen /HPF (None Seen); URIC ACID CRYSTALS,URINE None Seen /HPF (None Seen); URINE AMORPHOUS PHOSPHATES None Seen /HPF (None Seen); URINE AMORPHOUS URATE None Seen /HPF (None Seen); WAXY CASTS,URINE None Seen /LPF (None Seen)
[2021-10-05 16:23] LABS: ALANINE AMINOTRANSFERASE 70 U/L (12-78); ALBUMIN 3.4 g/dL (3.4-5.0); ALCOHOL, BLOOD < 3 mg/dL (0-0); ALKALINE PHOSPHATASE 50 U/L (46-116); ASPARTATE AMINOTRANSFERASE 65 U/L (15-37); BILIRUBIN,DIRECT 0.1 mg/dL (0.0-0.2); BILIRUBIN,TOTAL 0.3 mg/dL (0.2-1.0); CALCIUM, SERUM 8.6 mg/dL (8.5-10.1); CARBON DIOXIDE 26 mmol/L (21-32); CHLORIDE 106 mmol/L (98-107); CREATININE 0.6 mg/dL (0.6-1.3); GLUCOSE 97 mg/dL (74-106); POTASSIUM 3.4 mmol/L (3.5-5.1); SODIUM SERUM 137 mmol/L (136-145); TOTAL PROTEIN, SERUM 6.9 g/dL (6.4-8.2); UREA NITROGEN, BLOOD 8 mg/dL (7-18)
[2021-10-05 16:24] LABS: ACETAMINOPHEN < 2 ug/ml (10-30)
[2021-10-05 20:00] VITALS: BP 126/84
--- NOTE | 2021-10-05 23:28 | NUR ---
CLINICALS FAXED TO [facility]
--- NOTE | 2021-10-06 01:45 | NUR ---
PT IS ACCEPTED AT [facility] UNDER THE CARE OF DR. ELLIOTT. CALL [phone] FOR REPORT.
--- NOTE | 2021-10-06 01:47 | NUR ---
REPORT GIVEN TO GHULAM ZUNIGA SUP FOR [facility] AT [facility]
--- NOTE | 2021-10-06 01:54 | NUR ---
[facility] ETA 75-90 MIN
--- NOTE | 2021-10-06 02:35 | NUR ---
[facility]UL[facility] AT BEDSIDE FOR PT TRANSPORT TO [facility]. PT IS IN STABLE CONDITION. PT IS AMBULATORY ON STEADY GAIT. PT'S BELONGINGS GIVEN TO CONSULTATIVE SALES ASSOCIATE.
== END 2021-10-06 02:38 ==
LOC: ER 15:53
DX: R45.851 Suicidal ideations (principal); F31.9 Bipolar disorder, unspecified; F25.9 Schizoaffective disorder, unspecified; J45.909 Unspecified asthma, uncomplicated; R31.29 Other microscopic hematuria; Z20.822 Contact with and (suspected) exposure to COVID-19; F15.90 Other stimulant use, unspecified, uncomplicated; Z79.899 Other long term (current) drug therapy; Z88.8 Allergy status to other drugs, medicaments and biological substances; Z59.00 Homelessness unspecified
CPT/HCPCS: 36415; 80048; 80076; 80143; 80307; 80320; 81001; 85025; 87426; 99285; C9803; G0480

== ENCOUNTER 2021-12-08 16:47 | Emergency (ER) | payer MEDICAID, OTHER | END 2021-12-08 17:52 | disposition left against medical advice (07) | LOC: ER 16:55 | DX: R45.851 Suicidal ideations (principal); F16.159 Hallucinogen abuse with hallucinogen-induced psychotic disorder, unspecified; J45.909 Unspecified asthma, uncomplicated; F31.9 Bipolar disorder, unspecified; F20.9 Schizophrenia, unspecified; F17.200 Nicotine dependence, unspecified, uncomplicated; Z88.8 Allergy status to other drugs, medicaments and biological substances; Z60.2 Problems related to living alone; Z79.899 Other long term (current) drug therapy ==

== ENCOUNTER 2021-12-09 19:37 | Emergency (ER) | payer MEDICAID ==
[~2021-12-09] VITALS: Ht 170.2 cm; Wt 72.6 kg
--- NOTE | 2021-12-09 20:10 | NUR ---
PATIENT BIBSELF C/O +SI NO PLAN WANTING VOL PSYCH ADMIT. PATIENT A/O X 4, RR EVEN AND UNLABORED, NO SOB NOTED, VSS, NO ACUTE DISTRESS NOTED, AFEBRILE, AMBULATES WITH STEADY GAIT. PATIENT WANDED BY SECURITY, BELONGIGNS TAKEN PLACED IN LOCKER, PT PLACED IN HOSPITAL GOWN. PATIENT TAKEN TO ER BED 18. WILL CONTINUE TO MONITOR.
--- NOTE | 2021-12-09 20:18 | NUR ---
URINE COLLECTED AND SENT TO LAB
--- NOTE | 2021-12-09 20:19 | NUR ---
COVID SWAB COLLECTED AND SENT TO LAB
[2021-12-09] MEDS ORDERED: OLANZAPINE 5 MG TABLET ONE (20:52)
[2021-12-09] MEDS ORDERED: OLANZAPINE 5 MG TABLET PO ONE (21:00)
[2021-12-09 21:09] LABS: BILIRUBIN,URINE MODERATE (NEGATIVE); COLOR,URINE YELLOW (YELLOW); LEUKOCYTE ESTERASE ,URINE NEGATIVE (NEGATIVE); NITRITE, URINE NEGATIVE (NEGATIVE); PROTEIN,URINE TRACE mg/dl (NEGATIVE); UGLUCOSE NEGATIVE (NEGATIVE)
[2021-12-09 21:16] LABS: BASOPHILS % (AUTO) 0.4 % (0.0-2.0); EOSINOPHILS % (AUTO) 0.3 % (0.0-6.0); HEMATOCRIT 41 % (39-51); HEMOGLOBIN 14.2 g/dL (13.5-17.5); LYMPHOCYTES # (AUTO) 2.1 K/uL (0.8-4.8); LYMPHOCYTES % (AUTO) 21.6 % (20.0-44.0); MEAN CORPUSCULAR HGB CONC 35 g/dl (31.0-36.0); MEAN CORPUSCULAR VOLUME 92 fL (80-96); MONOCYTES # (AUTO) 0.9 K/uL (0.1-1.30); MONOCYTES % (AUTO) 9.3 % (2.0-12.0); NEUTROPHILS # (AUTO) 6.7 K/uL (1.8-8.9); NEUTROPHILS % (AUTO) 68.4 % (43.0-81.0); PLATELET COUNT (AUTO) 288 K/uL (150-450); RED BLOOD CELL COUNT(AUTO) 4.46 MIL/uL (4.5-6.0); WHITE BLOOD COUNT (AUTO) 9.8 K/uL (4.3-11.0)
[2021-12-09 21:24] LABS: ALANINE AMINOTRANSFERASE 30 U/L (12-78); ALBUMIN 4.3 g/dL (3.4-5.0); ALKALINE PHOSPHATASE 65 U/L (46-116); ASPARTATE AMINOTRANSFERASE 37 U/L (15-37); BILIRUBIN,DIRECT 0.5 mg/dL (0.0-0.2); BILIRUBIN,TOTAL 2.1 mg/dL (0.2-1.0); CALCIUM, SERUM 8.9 mg/dL (8.5-10.1); CARBON DIOXIDE 25 mmol/L (21-32); CHLORIDE 99 mmol/L (98-107); CREATININE 1.1 mg/dL (0.6-1.3); GLUCOSE 114 mg/dL (74-106); POTASSIUM 3.7 mmol/L (3.5-5.1); SODIUM SERUM 136 mmol/L (136-145); TOTAL PROTEIN, SERUM 8.2 g/dL (6.4-8.2); UREA NITROGEN, BLOOD 41 mg/dL (7-18)
[2021-12-09 21:30] LABS: ACETAMINOPHEN < 0 ug/ml (10-30); ALCOHOL, BLOOD < 3 mg/dL (0-0)
[2021-12-09 22:22] LABS: BACTERIA,URINE None seen /HPF (None Seen); MUCUS,URINE Many /LPF (None Seen); RBC,URINE 0-2 /HPF (0-2); SQUAMOUS EPITHELIAL CELL,UR 0-2 /HPF (None Seen); WBC,URINE 0-2 /HPF (0-3)
--- NOTE | 2021-12-09 22:39 | NUR ---
FACESHEET AND CLINICALS FAXED TO [facility].
--- NOTE | 2021-12-09 23:41 | NUR ---
ACCEPTED AT [facility] UNDER DR. ELLIOTT. # FOR REPORT : [phone]
--- NOTE | 2021-12-09 23:48 | NUR ---
[facility] CALLED FOR BLS TO [facility] ETA- 30 MIN
--- NOTE | 2021-12-10 00:22 | NUR ---
[facility] AT BEDSIDE FOR PATIENT TRANSPORT.
--- NOTE | 2021-12-10 00:22 | NUR ---
report given to wayne jeffers
[2021-12-10 00:25] VITALS: BP 139/70
== END 2021-12-10 00:22 ==
LOC: ER 19:47
DX: R45.851 Suicidal ideations (principal); F31.9 Bipolar disorder, unspecified; F25.9 Schizoaffective disorder, unspecified; Z20.822 Contact with and (suspected) exposure to COVID-19; Z79.899 Other long term (current) drug therapy; J45.909 Unspecified asthma, uncomplicated; Z59.00 Homelessness unspecified; F19.10 Other psychoactive substance abuse, uncomplicated; Z88.8 Allergy status to other drugs, medicaments and biological substances
CPT/HCPCS: 36415; 80048; 80076; 80143; 80307; 80320; 81001; 85025; 87426; 99285; C9803; G0480

== ENCOUNTER 2021-12-26 09:27 | Emergency (ER) | payer MEDICAID ==
[~2021-12-26] VITALS: Ht 182.9 cm; Wt 72.6 kg
[2021-12-26 09:45] VITALS: BP 134/85
--- NOTE | 2021-12-26 09:50 | NUR ---
Homeless asking for food and juices. Denies active SI or plan.
--- NOTE | 2021-12-26 09:52 | NUR ---
At Risk Paraprofessional here tot draw Pt refused states "I dont want you to draw blood". Seen Crow
== END 2021-12-26 09:55 | disposition home or self-care (01) ==
LOC: ER 09:42
DX: F23 Brief psychotic disorder (principal); J45.909 Unspecified asthma, uncomplicated; F25.9 Schizoaffective disorder, unspecified; Z98.890 Other specified postprocedural states; Z60.2 Problems related to living alone; Z88.8 Allergy status to other drugs, medicaments and biological substances; Z79.899 Other long term (current) drug therapy

== ENCOUNTER 2022-04-24 18:41 | Emergency (ER) | payer MEDICAID ==
--- NOTE | 2022-04-24 19:02 | NUR ---
CALLED IN TRIAGE, NO ASNWER
--- NOTE | 2022-04-24 19:49 | NUR ---
CALLED TO TRIAGE, NO ANSWER
--- NOTE | 2022-04-24 20:15 | NUR ---
CALLED TO TRIAGE, NO ANSWER
== END 2022-04-24 20:19 | disposition left against medical advice (07) ==
LOC: ER 18:41
DX: Z53.21 Procedure and treatment not carried out due to patient leaving prior to being seen by health care provider (principal)

== ENCOUNTER 2022-04-25 18:08 | Emergency (ER) | payer MEDICAID ==
--- NOTE | 2022-04-25 19:04 | NUR ---
CALLED IN ED WAITING ROOM. NO RESPONSE.
--- NOTE | 2022-04-25 19:40 | NUR ---
CALLED PT TO TRIAGE ROOM , PRATIBHA HENRY
--- NOTE | 2022-04-25 20:16 | NUR ---
CALLED PT TO TRIAGE ROOM , PRATIBHA HENYR
== END 2022-04-25 20:28 | disposition left against medical advice (07) ==
LOC: ER 18:12
DX: Z53.21 Procedure and treatment not carried out due to patient leaving prior to being seen by health care provider (principal)

== ENCOUNTER 2022-04-26 08:58 | Emergency (ER) | payer MEDICAID ==
[~2022-04-26] VITALS: Ht 188 cm; Wt 90.7 kg
--- NOTE | 2022-04-26 09:03 | NUR ---
DR SORIANO AT BEDSIDE FOR EVAL.
[2022-04-26 09:05] VITALS: BP 121/78
--- NOTE | 2022-04-26 09:20 | NUR ---
SYSTEMS ANALYSIS MANAGER AT BEDSIDE FOR BLOOD DRAW.
[2022-04-26 09:34] LABS: BASOPHILS # (AUTO) 0.1 K/uL (0.0-0.2); BASOPHILS % (AUTO) 0.9 % (0.0-2.0); EOSINOPHILS % (AUTO) 1.5 % (0.0-6.0); HEMATOCRIT 36 % (39-51); HEMOGLOBIN 12.4 g/dL (13.5-17.5); LYMPHOCYTES % (AUTO) 26.2 % (20.0-44.0); MEAN CORPUSCULAR HGB CONC 34 g/dl (31.0-36.0); MEAN CORPUSCULAR VOLUME 91 fL (80-96); MONOCYTES # (AUTO) 0.6 K/uL (0.1-1.30); MONOCYTES % (AUTO) 7.4 % (2.0-12.0); PLATELET COUNT (AUTO) 398 K/uL (150-450); RED BLOOD CELL COUNT(AUTO) 3.99 MIL/uL (4.5-6.0); WHITE BLOOD COUNT (AUTO) 7.7 K/uL (4.3-11.0)
[2022-04-26 09:36] LABS: BILIRUBIN,URINE 1+ (NEGATIVE); COLOR,URINE YELLOW (YELLOW); LEUKOCYTE ESTERASE ,URINE NEGATIVE (NEGATIVE); NITRITE, URINE NEGATIVE (NEGATIVE); PH,URINE 5.5 (5.0-8.0); PROTEIN,URINE NEGATIVE (NEGATIVE); UGLUCOSE NEGATIVE (NEGATIVE); UROBILINOGEN,URINE 0.2 EU/dL (0.2)
[2022-04-26 09:45] LABS: ALANINE AMINOTRANSFERASE 25 U/L (12-78); ALBUMIN 3.7 g/dL (3.4-5.0); ALCOHOL, BLOOD < 3 mg/dL (0-0); ALKALINE PHOSPHATASE 55 U/L (46-116); ASPARTATE AMINOTRANSFERASE 24 U/L (15-37); BILIRUBIN,DIRECT 0.2 mg/dL (0.0-0.2); BILIRUBIN,TOTAL 0.9 mg/dL (0.2-1.0); CALCIUM, SERUM 8.7 mg/dL (8.5-10.1); CARBON DIOXIDE 25 mmol/L (21-32); CHLORIDE 101 mmol/L (98-107); CREATININE 0.7 mg/dL (0.6-1.3); GLUCOSE 99 mg/dL (74-106); POTASSIUM 3.6 mmol/L (3.5-5.1); SODIUM SERUM 136 mmol/L (136-145); TOTAL PROTEIN, SERUM 7.2 g/dL (6.4-8.2); UREA NITROGEN, BLOOD 21 mg/dL (7-18)
[2022-04-26 10:00] LABS: ACETAMINOPHEN < 10 ug/ml (10-30)
--- NOTE | 2022-04-26 11:47 | NUR ---
FAXED CLINICALS TO [facility].
--- NOTE | 2022-04-26 12:28 | NUR ---
PT NOT IN HIS ROOM, ELOPED.
[2022-04-26 12:50] LABS: BACTERIA,URINE Few /HPF (None Seen); SPERM,URINE Few /HPF (None Seen); SQUAMOUS EPITHELIAL CELL,UR Few /HPF (None Seen); WBC,URINE 0-2 /HPF (0-3)
== END 2022-04-26 12:31 | disposition left against medical advice (07) ==
LOC: ER 09:00
DX: R45.851 Suicidal ideations (principal); F31.9 Bipolar disorder, unspecified; F15.10 Other stimulant abuse, uncomplicated; F25.9 Schizoaffective disorder, unspecified; Z53.20 Procedure and treatment not carried out because of patient's decision for unspecified reasons; Z20.822 Contact with and (suspected) exposure to COVID-19; Z59.00 Homelessness unspecified; J45.909 Unspecified asthma, uncomplicated
CPT/HCPCS: 99283; 85025; 80048; 80076; 81001; 36415; 87426; 80143; 80320; 80307; C9803; G0480

== ENCOUNTER 2022-04-28 12:11 | Emergency (ER) | payer MEDICAID ==
--- NOTE | 2022-04-28 12:15 | NUR ---
called to triage,no answer
--- NOTE | 2022-04-28 12:27 | NUR ---
CALLED TO TRIAGE, NO RESPONSE.
--- NOTE | 2022-04-28 12:53 | NUR ---
called in ed waiting room for the third time. no response. left without being triage
== END 2022-04-28 12:55 | disposition left against medical advice (07) ==
LOC: ER 12:17
DX: Z53.21 Procedure and treatment not carried out due to patient leaving prior to being seen by health care provider (principal)

== ENCOUNTER 2022-05-06 08:56 | Emergency (ER) | payer MEDICAID | END 2022-05-06 10:09 | disposition home or self-care (01) | LOC: ER 09:01 | DX: Z53.21 Procedure and treatment not carried out due to patient leaving prior to being seen by health care provider (principal) ==

== ENCOUNTER 2022-05-10 07:59 | Emergency (ER) | payer MEDICAID ==
--- NOTE | 2022-05-10 08:10 | NUR ---
CALLED IN ED WAITING ROOM NO RESPONSE.
--- NOTE | 2022-05-10 08:32 | NUR ---
CALLED IN ED WAITING ROOM NO RESPONSE.
--- NOTE | 2022-05-10 08:33 | NUR ---
PT LEFT WITHOUT BEING SEEN.
== END 2022-05-10 08:34 | disposition left against medical advice (07) ==
LOC: ER 07:59
DX: Z53.21 Procedure and treatment not carried out due to patient leaving prior to being seen by health care provider (principal)